=== PATIENT | female | born 1970 | race Two or more races ===

== ENCOUNTER 2016-12-17 18:15 | Inpatient (IN) | payer BC ==
[~2016-12-17] VITALS: Ht 170.2 cm; Wt 74.1 kg
[2016-12-17] MEDS ORDERED: ASPirin-EC 81 mg tab PO ONE (19:00)
[2016-12-17] MEDS ORDERED: NovoloG Insulin 1unit/0.01ml Soln (100units/ml) SC ONE (19:00)
[2016-12-17] MEDS ORDERED: PROMETHAZINE-DM 5 ML ORAL SYRUP PO PRN (19:00)
[2016-12-17 19:45] VITALS: BP 148/76
[2016-12-17 20:00] VITALS: BP 148/76
[2016-12-17] MEDS: ACETAMINOPHEN 500 MG TAB PO PRN (20:16)
[2016-12-17] MEDS ORDERED: DEXTROSE (50%) 50ML SYRG IV PRN (20:30)
[2016-12-17 20:34] LABS: Basophils # (auto) 0 uL; Basophils % (auto) 0.4 % (0.0-2.0); DEFINITIVE VIEW TRANSMISSION; Eosinophils # (auto) 0 uL; Eosinophils % (auto) 0.3 % (0.0-7.0); Hematocrit 37.3 % (36.0-46.0); Lymphocytes # (auto) 0.7 uL; Lymphocytes % (auto) 8.4 % (10.0-50.0); Mean Corpuscular Hemoglobin 19.2 pg (28.0-32.0); Mean Corpuscular Hgb Conc. 29.4 g/dL (32.0-36.0); Mean Corpuscular Volume 65.3 fL (80.0-100.0); Mean Platelet Volume 7.9 fL (7.4-10.4); Monocytes # (auto) 0.5 uL; Monocytes % (auto) 6.4 % (0.0-12.0); Neutrophils # (auto) 7.1 uL; Neutrophils % (auto) 84.5 % (37.0-80.0); Platelet Count (auto) 297 10^3/uL (140-450); White Blood Cell 8.4 10^3/uL (4.4-10.8)
[2016-12-17 20:43] LABS: INR 1.12 (0.9-1.15); Partial Thromboplastin Time 26.4 sec (22.64-33.71); Prothrombin Time 11.5 sec (9.37-12.3)
[2016-12-17 20:48] LABS: Albumin 3.5 g/dL (3.4-5.0); BUN/Creatinine Ratio 10.2; Calcium 8.4 mg/dL (8.5-10.1); Potassium 4.1 mmol/L (3.5-5.1)
[2016-12-17 20:51] LABS: Bilirubin, Total 0.3 mg/dL (0.2-1.0); Total Protein 6.9 g/dL (6.4-8.2)
[2016-12-17] MEDS: SODIUM CHLORIDE 0.9% 1,000 ML IV SCH (21:31)
[2016-12-17] MEDS: HYDROmorphone HCL 2 MG/ML VL IV PRN (21:31)
[2016-12-17 21:39] VITALS: BP 137/85
[2016-12-17] MEDS ORDERED: PSEUDOEPHEDRINE HCL 30 MG TAB PO ONE (22:00)
[2016-12-17 22:06] LABS: Hypochromia Marked; Microcytosis Marked; Platelet Estimate Adequate; Tear Drop Cells FEW
[2016-12-17] MEDS: ACCU-CHEK COMFORT CURVE STRIP VI SCH (22:28)
[2016-12-17] MEDS: ATORVASTATIN 20 MG TAB PO SCH (22:28)
[2016-12-17] MEDS: LEVOFLOXACIN 500MG 100 ML IV SCH (22:28)
[2016-12-17] MEDS: NovoloG Insulin 1unit/0.01ml Soln (100units/ml) SC SCH (22:52)
[2016-12-17 23:00] LABS: Urine RBC None Seen /hpf (0 - 4)
[2016-12-17 23:09] VITALS: BP 148/76
[2016-12-17 23:23] LABS: Urine Bilirubin Negative (Negative); Urine Blood Negative /uL (Negative); Urine Color Yellow (Yellow); Urine Ketone Negative (Negative); Urine Nitrite Negative (Negative); Urine Squamous Epithelial Cell FEW /hpf (<5); Urine Urobilinogen Normal (Negative); Urine pH 6.5 (5.0-8.0)
[2016-12-17 23:35] LABS: Urine Glucose 4+ mg/dL (Normal)
[2016-12-17] MEDS ORDERED: METF-314 PO (23:41)
[2016-12-17] MEDS ORDERED: GLIM2TAB33 PO (23:42)
[2016-12-18] VITALS (8 sets, daily range): BP systolic 116–133; BP diastolic 69–81
[2016-12-18] MEDS: SODIUM CHLORIDE 0.9% 1,000 ML IV SCH ×4 (03:00→19:57)
[2016-12-18 05:51] LABS: Basophils # (auto) 0 uL; Basophils % (auto) 0.3 % (0.0-2.0); DEFINITIVE VIEW TRANSMISSION; Eosinophils # (auto) 0 uL; Eosinophils % (auto) 0.1 % (0.0-7.0); Hematocrit 35.6 % (36.0-46.0); Hemoglobin 10.5 g/dL (12.2-16.2); Lymphocytes # (auto) 0.7 uL; Lymphocytes % (auto) 10.8 % (10.0-50.0); Mean Corpuscular Hemoglobin 19.3 pg (28.0-32.0); Mean Corpuscular Hgb Conc. 29.5 g/dL (32.0-36.0); Mean Corpuscular Volume 65.6 fL (80.0-100.0); Mean Platelet Volume 8.3 fL (7.4-10.4); Monocytes # (auto) 0.6 uL; Monocytes % (auto) 9.1 % (0.0-12.0); Neutrophils # (auto) 5.5 uL; Neutrophils % (auto) 79.7 % (37.0-80.0); Platelet Count (auto) 271 10^3/uL (140-450); Red Cell Distribution Width 16.6 % (11.6-16.0); White Blood Cell 6.8 10^3/uL (4.4-10.8)
[2016-12-18] MEDS: HYDROmorphone HCL 2 MG/ML VL IV PRN ×3 (06:13→21:53)
[2016-12-18 06:17] LABS: Potassium 3.8 mmol/L (3.5-5.1)
[2016-12-18 06:20] LABS: Albumin 3.2 g/dL (3.4-5.0); BUN/Creatinine Ratio 11.8; Calcium 8.1 mg/dL (8.5-10.1)
[2016-12-18 06:33] LABS: Bilirubin, Total 0.3 mg/dL (0.2-1.0); Total Protein 6.5 g/dL (6.4-8.2)
[2016-12-18] MEDS: ACCU-CHEK COMFORT CURVE STRIP VI SCH ×4 (06:35→21:59)
[2016-12-18] MEDS: NovoloG Insulin 1unit/0.01ml Soln (100units/ml) SC SCH ×4 (06:36→22:23)
[2016-12-18] MEDS: LEVOFLOXACIN 500MG 100 ML IV SCH (10:12)
[2016-12-18] MEDS: PANTOPRAZOLE SODIUM 40 MG/10 ML VIAL IV SCH (10:12)
[2016-12-18] MEDS ORDERED: LANTUS SC SCH (18:00)
[2016-12-18] MEDS: ATORVASTATIN 20 MG TAB PO SCH (21:53)
[2016-12-18] MEDS: TEMAZEPAM 15 MG CAP PO PRN (21:53)
[2016-12-19 05:30] VITALS: BP 140/79
[2016-12-19] MEDS: ACCU-CHEK COMFORT CURVE STRIP VI SCH ×4 (06:17→22:16)
[2016-12-19] MEDS: NovoloG Insulin 1unit/0.01ml Soln (100units/ml) SC SCH ×4 (06:17→22:00)
[2016-12-19] MEDS: ACETAMINOPHEN 500 MG TAB PO PRN (08:28)
[2016-12-19] MEDS: HYDROmorphone HCL 2 MG/ML VL IV PRN ×2 (08:43→22:06)
[2016-12-19] MEDS: ALUM & MAG HYDROX-SIMETH LIQ(MAALOX) 30 ML PO PRN (08:46)
[2016-12-19 09:00] VITALS: BP 111/61
[2016-12-19] MEDS: LEVOFLOXACIN 500MG 100 ML IV SCH (10:15)
[2016-12-19] MEDS: PANTOPRAZOLE SODIUM 40 MG/10 ML VIAL IV SCH (10:15)
[2016-12-19] MEDS: metFORMIN HYDROCHLORIDE 850 MG TAB PO SCH ×2 (10:25→18:00)
[2016-12-19 11:55] VITALS: BP 115/75
[2016-12-19 17:08] VITALS: BP 124/67
[2016-12-19] MEDS: INSULIN DETEMIR(LEVEMIR) 1unit/0.01ml Soln (100units/ml) SC SCH (18:02)
[2016-12-19 22:00] VITALS: BP 116/78
[2016-12-19] MEDS: ATORVASTATIN 20 MG TAB PO SCH (22:05)
[2016-12-19] MEDS: TEMAZEPAM 15 MG CAP PO PRN (22:06)
[2016-12-20] MEDS ORDERED: ALPRAZolam 0.5 MG TAB PO ONE (00:15)
[2016-12-20 05:08] VITALS: BP 123/79
[2016-12-20] MEDS: SODIUM CHLORIDE 0.9% 1,000 ML IV SCH ×2 (05:41→18:18)
[2016-12-20] MEDS: metFORMIN HYDROCHLORIDE 850 MG TAB PO SCH ×2 (06:22→17:40)
[2016-12-20] MEDS: ACCU-CHEK COMFORT CURVE STRIP VI SCH ×4 (06:27→22:05)
[2016-12-20] MEDS: NovoloG Insulin 1unit/0.01ml Soln (100units/ml) SC SCH ×4 (06:27→22:11)
[2016-12-20] MEDS ORDERED: THROAT LOZENGES(CEPASTAT) MT PRN ×2 (08:30→11:45)
[2016-12-20] MEDS ORDERED: cefTRIAXone 1GM/50ML D5W 50 ML IV SCH (09:00)
[2016-12-20] MEDS: HYDROmorphone HCL 2 MG/ML VL IV PRN ×2 (09:15→22:06)
[2016-12-20 09:47] VITALS: BP 130/78
[2016-12-20] MEDS: PANTOPRAZOLE SODIUM 40 MG/10 ML VIAL IV SCH (09:56)
[2016-12-20] MEDS: LEVOFLOXACIN 500MG 100 ML IV SCH (09:56)
[2016-12-20 12:01] VITALS: BP 110/67
[2016-12-20] MEDS: ALUM & MAG HYDROX-SIMETH LIQ(MAALOX) 30 ML PO PRN (12:39)
[2016-12-20 17:01] VITALS: BP 141/80
[2016-12-20] MEDS: INSULIN DETEMIR(LEVEMIR) 1unit/0.01ml Soln (100units/ml) SC SCH (17:53)
[2016-12-20] MEDS: ACETAMINOPHEN 500 MG TAB PO PRN (18:27)
[2016-12-20 21:58] VITALS: BP 132/80
[2016-12-20] MEDS: ATORVASTATIN 20 MG TAB PO SCH (22:05)
[2016-12-20] MEDS: TEMAZEPAM 15 MG CAP PO PRN (23:20)
[2016-12-21 05:00] VITALS: BP 127/78
[2016-12-21] MEDS: ACCU-CHEK COMFORT CURVE STRIP VI SCH ×2 (06:28→12:09)
[2016-12-21] MEDS: metFORMIN HYDROCHLORIDE 850 MG TAB PO SCH (06:28)
[2016-12-21] MEDS: NovoloG Insulin 1unit/0.01ml Soln (100units/ml) SC SCH ×2 (06:31→11:30)
[2016-12-21] MEDS: HYDROmorphone HCL 2 MG/ML VL IV PRN (06:35)
[2016-12-21 07:30] LABS: Basophils # (auto) 0 uL; Basophils % (auto) 0.5 % (0.0-2.0); DEFINITIVE VIEW TRANSMISSION; Eosinophils # (auto) 0.2 uL; Eosinophils % (auto) 5.4 % (0.0-7.0); Hematocrit 32.2 % (36.0-46.0); Hemoglobin 9.9 g/dL (12.2-16.2); Lymphocytes # (auto) 1.8 uL; Lymphocytes % (auto) 41.9 % (10.0-50.0); Mean Corpuscular Hemoglobin 20.3 pg (28.0-32.0); Mean Corpuscular Hgb Conc. 30.9 g/dL (32.0-36.0); Mean Corpuscular Volume 65.9 fL (80.0-100.0); Mean Platelet Volume 8.3 fL (7.4-10.4); Monocytes # (auto) 0.4 uL; Monocytes % (auto) 10.4 % (0.0-12.0); Neutrophils # (auto) 1.8 uL; Neutrophils % (auto) 41.8 % (37.0-80.0); Platelet Count (auto) 295 10^3/uL (140-450); White Blood Cell 4.2 10^3/uL (4.4-10.8)
[2016-12-21 07:38] LABS: BUN/Creatinine Ratio 12.9; Calcium 7.9 mg/dL (8.5-10.1); Potassium 3.9 mmol/L (3.5-5.1)
[2016-12-21] MEDS ORDERED: LEVO500T3 PO (08:45)
[2016-12-21] MEDS ORDERED: GLIM2TAB33 PO (08:45)
[2016-12-21] MEDS ORDERED: LEVEMIR SC (08:45)
[2016-12-21 09:00] VITALS: BP 124/75
[2016-12-21] MEDS ORDERED: cefTRIAXone 1GM/50ML D5W 50 ML IV SCH (09:00)
[2016-12-21] MEDS: PANTOPRAZOLE SODIUM 40 MG/10 ML VIAL IV SCH (09:29)
[2016-12-21] MEDS ORDERED: LEVOFLOXACIN 500MG 100 ML IV SCH (10:00)
[2016-12-21 10:57] VITALS: BP 124/75
[2016-12-21 12:02] LABS: Platelet Estimate Adequate
[2016-12-21 12:03] LABS: Burr Cells FEW; Hypochromia Moderate; Microcytosis Marked; Ovalocytes FEW; Tear Drop Cells FEW
[2016-12-21 12:40] VITALS: BP 138/93
== END 2016-12-21 13:20 | disposition home or self-care (01) | DRG 872 ==
LOC: CENTRAL 18:15
PROVIDERS: ADMIT Specialist; ATTEND Specialist
DX: A41.9 Sepsis, unspecified organism (principal); N39.0 Urinary tract infection, site not specified; N10 Acute pyelonephritis; D50.9 Iron deficiency anemia, unspecified; E11.65 Type 2 diabetes mellitus with hyperglycemia; E86.1 Hypovolemia; J20.9 Acute bronchitis, unspecified; J45.909 Unspecified asthma, uncomplicated; R09.1 Pleurisy; R50.9 Fever, unspecified; N92.0 Excessive and frequent menstruation with regular cycle; J11.1 Influenza due to unidentified influenza virus with other respiratory manifestations; D25.9 Leiomyoma of uterus, unspecified
CPT/HCPCS: 36415; 71010; 76775; 80048; 80053; 81001; 82962; 83036; 85025; 85610; 85730; 87040; 87086; C9113; J0696; J1815; J1956